=== PATIENT | female | born 1975 | race Caucasian/White ===

== ENCOUNTER → 2023-05-17 07:13 | Outpatient (CLI) | payer OTHER, SELFPAY ==
--- NOTE | 2023-05-17 07:17 | DI.MRI.S_ITS ---
PROCEDURE: MR HEAD/BRAIN WO/W CON INDICATIONS: Headache, unspecified TECHNIQUE: Noncontrast axial T1 spin echo, axial T2 fast spin echo, sagittal and axial FLAIR, coronal T2 fast spin echo, axial gradient echo, axial diffusion and ADC through the brain. After the administration of contrast, axial and coronal and sagittal 3D VIBE or T1 spin echo with fat saturation through the brain. COMPARISON: None. FINDINGS: Image quality: Excellent. CSF Spaces: Basal cisterns are patent. No extra-axial fluid collections. Ventricles are normal in size and shape. Brain: No midline shift. No intracranial bleeds or masses. No abnormal intracranial enhancement. The brainstem appears normal. Diffusion-weighted images demonstrate no acute infarct. No chronic ischemic insults. Normal intravascular flow voids are present. Skull and face: Calvarial marrow is normal in signal. Orbits appear normal. Sinuses: [id number] mucosal thickening can be seen within the ethmoid air cells. Milder mucosal thickening can be seen elsewhere within the paranasal sinuses. No abnormal fluid is seen within the mastoid air cells. IMPRESSION: No intracranial abnormality is seen to explain the patient's presenting symptoms of headache. No masses or abnormal enhancement can be seen. Note made of ethmoid air cell disease. Dictated by: Jerson Arambula M.D. on 05/17/2023 at 10:03 Approved by: Jerson Arambula M.D. on 05/17/2023 at 10:05
== END ==
PROVIDERS: PCP Nurse Practitioner Primary Care; Referring Provider Nurse Practitioner Primary Care; Visit Provider Nurse Practitioner Primary Care
DX: R51.9 Headache, unspecified (principal); J32.2 Chronic ethmoidal sinusitis
CPT/HCPCS: 70553